=== PATIENT | male | born 2000 ===

== ENCOUNTER 2023-09-05 15:39 | Outpatient (CLI) | payer OTHER, SELFPAY | END 2023-09-05 15:40 | disposition home or self-care (01) | PROVIDERS: PCP Family Medicine; Visit Provider Family Medicine | DX: E11.9 Type 2 diabetes mellitus without complications (principal); E55.9 Vitamin D deficiency, unspecified; Z13.220 Encounter for screening for lipoid disorders; Z13.29 Encounter for screening for other suspected endocrine disorder; Z79.4 Long term (current) use of insulin | CPT/HCPCS: 80053; 80061; 82043; 82306; 82570; 84443 ==

== ENCOUNTER 2023-09-15 04:10 | Outpatient (CLI) | payer MEDICAID, SELFPAY | END 2023-09-15 04:11 | disposition home or self-care (01) | LOC: AMB 09-17 03:53 | PROVIDERS: PCP Family Medicine; Visit Provider Family Medicine | DX: R45.851 Suicidal ideations (principal) | CPT/HCPCS: A0425; A0429 ==

== ENCOUNTER 2023-11-24 16:14 | Outpatient (CLI) | payer MEDICAID, SELFPAY | END 2023-11-24 16:15 | disposition home or self-care (01) | LOC: NFLDREF 11-28 17:49 | PROVIDERS: PCP Family Medicine; Visit Provider Family Medicine | DX: E10.9 Type 1 diabetes mellitus without complications (principal) | CPT/HCPCS: 82043; 82570 ==

== ENCOUNTER 2024-05-13 23:08 | Outpatient (CLI) | payer MEDICAID, SELFPAY | END 2024-05-13 23:09 | disposition home or self-care (01) | LOC: AMB 05-17 10:09 | PROVIDERS: PCP Family Medicine; Visit Provider Emergency Medicine | DX: R45.851 Suicidal ideations (principal) | CPT/HCPCS: A0425; A0429 ==

== ENCOUNTER 2024-07-03 13:07 | Outpatient (CLI) | payer MEDICAID, SELFPAY | END 2024-07-03 13:08 | disposition home or self-care (01) | LOC: LKVREF 13:08 | PROVIDERS: PCP Family Medicine; Visit Provider Family Medicine | DX: E10.9 Type 1 diabetes mellitus without complications (principal); E55.9 Vitamin D deficiency, unspecified | CPT/HCPCS: 80048 ==

== ENCOUNTER 2024-11-20 09:14 | Outpatient (CLI) | payer MEDICAID, SELFPAY | END 2024-11-20 09:15 | disposition home or self-care (01) | LOC: NFLDREF 11-24 20:57 | PROVIDERS: PCP Family Medicine; Referring Provider Family Medicine; Visit Provider Family Medicine | DX: E10.9 Type 1 diabetes mellitus without complications (principal); Z13.6 Encounter for screening for cardiovascular disorders | CPT/HCPCS: 80053; 80061; 82043; 82570 ==